=== PATIENT | male | born 1930 | race Caucasian/White ===

== ENCOUNTER 2016-05-11 07:01 | Inpatient (IN) | payer MEDICARE, BC ==
[~2016-05-11] VITALS: Ht 182.9 cm; Wt 68.9 kg
[~2016-05-11 07:01] MED LIST: ASPI81TA2 PO; CINA30TA PO; FOLI1TAB16 PO; HYDR-4077 PO; NIAC500T5 PO; OMEG500C3 PO; RANO500T3 PO; TAMS-12 PO; THYR30TA2 PO; VIT1TABL44 PO; ZOLP5TAB2 PO
[2016-05-11 07:39] LABS: BASOPHILS % (AUTO) 0.5 % (0.0-2.0); DIFF TOTAL % 100 %; EOSINOPHILS # (AUTO) 0.1 /CMM (0.0-0.7); EOSINOPHILS % (AUTO) 1.8 % (0.0-6.0); HEMATOCRIT 32 % (39-51); HEMOGLOBIN 10.4 g/dL (13.5-17.5); LYMPHOCYTES # (AUTO) 1.3 /CMM (0.8-4.8); LYMPHOCYTES % (AUTO) 26.9 % (20.0-44.0); MEAN CORPUSCULAR HEMOGLOBIN 37 PG (26.0-33.0); MEAN CORPUSCULAR HGB CONC 33 g/dl (31.0-36.0); MEAN CORPUSCULAR VOLUME 113 fL (80-96); MONOCYTES # (AUTO) 0.7 /CMM (0.1-1.30); MONOCYTES % (AUTO) 13.8 % (2.0-12.0); NEUTROPHILS # (AUTO) 2.8 /CMM (1.8-8.9); PLATELET COUNT (AUTO) 180 /CMM (150-450); RED BLOOD CELL COUNT(AUTO) 2.83 MIL/uL (4.5-6.0)
[2016-05-11 07:49] LABS: CALCIUM, SERUM 9.1 mg/dL (8.5-10.1); CREATININE 4.7 mg/dL (0.6-1.3); POTASSIUM 4.7 mmol/L (3.5-5.1)
[2016-05-11 08:03] LABS: INR 1.05 (0.87-1.13); PROTHROMBIN TIME 11.4 SECS (9.5-12.7)
[2016-05-11] MEDS ORDERED: ONDANSETRON HCL/PF 4 MG/2 ML VIAL ONE (08:45)
[2016-05-11] MEDS ORDERED: MORPHINE SULFATE INJ 4 MG/ML DISP.SYRIN ONE (08:45)
[2016-05-11 09:30] VITALS: BP 145/63
[2016-05-11] MEDS ORDERED: ONDANSETRON HCL/PF 4 MG/2 ML VIAL IVP ONE (09:30)
[2016-05-11] MEDS ORDERED: MORPHINE SULFATE INJ 2 MG/ML DISP.SYRIN IV ONE (09:30)
[2016-05-11] MEDS: hydrALAZINE HCL 50 MG TABLET PO SCH ×2 (09:30→17:00)
[2016-05-11] MEDS: THYROID 30 MG TABLET PO SCH (09:30)
[2016-05-11] MEDS: CINACALCET HCL 30 MG TABLET PO SCH (09:30)
[2016-05-11] MEDS: HEPARIN SODIUM, PORCINE 5000 UNITS/1 ML VIAL SQ SCH ×2 (10:30→21:00)
[2016-05-11] MEDS: VIT B CMPLX 3/FA/VIT C/BIOTIN 1 TAB TABLET PO SCH (11:28)
[2016-05-11] MEDS: FOLIC ACID 1 MG TABLET PO SCH (11:28)
[2016-05-11] MEDS: MORPHINE SULFATE INJ 2 MG/ML DISP.SYRIN IV PRN ×2 (11:30→21:08)
[2016-05-11 16:00] VITALS: BP 149/56
[2016-05-11] MEDS ORDERED: IV NS 0.9% 1,000 ML ONE (16:30)
[2016-05-11] MEDS: NIACIN EXT TAB (500MG) 500 MG TABLET.SA PO SCH (17:00)
[2016-05-11] MEDS ORDERED: IV NS 0.9% 1,000 ML IV PRN (17:00)
[2016-05-11] MEDS ORDERED: NIACIN 250 MG TABLET.SA PO SCH (17:00)
[2016-05-11 18:00] VITALS: BP 142/62
[2016-05-11 20:00] VITALS: BP 129/63
[2016-05-11 22:00] VITALS: BP 129/63
[2016-05-11] MEDS: ZOLPIDEM TARTRATE 5 MG TABLET PO SCH (22:37)
[2016-05-11] MEDS: TAMSULOSIN 0.4 MG CAP.SR.24H PO SCH (22:37)
[2016-05-12 06:54] LABS: BASOPHILS % (AUTO) 0.3 % (0.0-2.0); DIFF TOTAL % 100 %; EOSINOPHILS % (AUTO) 0.4 % (0.0-6.0); HEMATOCRIT 33 % (39-51); HEMOGLOBIN 10.9 g/dL (13.5-17.5); MEAN CORPUSCULAR HEMOGLOBIN 37 PG (26.0-33.0); MEAN CORPUSCULAR HGB CONC 33 g/dl (31.0-36.0); MEAN CORPUSCULAR VOLUME 112 fL (80-96); MONOCYTES # (AUTO) 1.3 /CMM (0.1-1.30); MONOCYTES % (AUTO) 19.4 % (2.0-12.0); NEUTROPHILS # (AUTO) 4.4 /CMM (1.8-8.9); NEUTROPHILS % (AUTO) 64.9 % (43.0-81.0); PLATELET COUNT (AUTO) 174 /CMM (150-450); RED BLOOD CELL COUNT(AUTO) 2.98 MIL/uL (4.5-6.0); WHITE BLOOD COUNT (AUTO) 6.8 K/uL (4.3-11.0)
[2016-05-12 07:07] LABS: ALBUMIN 3.2 g/dL (3.4-5.0); BILIRUBIN,TOTAL 0.7 mg/dL (0.2-1.0); CALCIUM, SERUM 8.5 mg/dL (8.5-10.1); CREATININE 3.8 mg/dL (0.6-1.3); PHOSPHORUS 3.5 mg/dL (2.5-4.9); TOTAL PROTEIN, SERUM 7.2 g/dL (6.4-8.2)
[2016-05-12 07:12] LABS: POTASSIUM 4.8 mmol/L (3.5-5.1)
[2016-05-12 08:00] VITALS: BP 130/56
[2016-05-12] MEDS: MORPHINE SULFATE INJ 2 MG/ML DISP.SYRIN IV PRN ×2 (09:37→21:24)
[2016-05-12] MEDS: CINACALCET HCL 30 MG TABLET PO SCH (09:37)
[2016-05-12] MEDS: VIT B CMPLX 3/FA/VIT C/BIOTIN 1 TAB TABLET PO SCH (09:37)
[2016-05-12] MEDS: THYROID 30 MG TABLET PO SCH (09:37)
[2016-05-12] MEDS: ASPIRIN 81 MG TAB.CHEW PO SCH (09:37)
[2016-05-12] MEDS: FOLIC ACID 1 MG TABLET PO SCH (09:38)
[2016-05-12] MEDS: hydrALAZINE HCL 50 MG TABLET PO SCH ×2 (09:39→17:00)
[2016-05-12] MEDS: NIACIN EXT TAB (500MG) 500 MG TABLET.SA PO SCH ×2 (09:40→18:30)
[2016-05-12 09:42] LABS: EOSINOPHILS % (MANUAL) 2 % (0-4); LYMPHOCYTES % (MANUAL) 14 % (16-48)
[2016-05-12 09:43] LABS: ANISOCYTOSIS 1+; PLATELET ESTIMATE ADEQUATE
[2016-05-12] MEDS ORDERED: SECONDARY IV SET 1 EA INFUS.SET MC ONE (11:56)
[2016-05-12] MEDS: Magnesium 1GM/D5W 100ML PREMIX 100 ML IV SCH ×2 (11:57→13:49)
[2016-05-12] MEDS ORDERED: IV NS 0.9% 250 ML IV ONE (11:59)
[2016-05-12 16:00] VITALS: BP_SYST 122; BP_SYST 147; BP_DIAS 51; BP_DIAS 65
[2016-05-12 20:00] VITALS: BP_SYST 131; BP_SYST 99; BP_DIAS 50; BP_DIAS 60
[2016-05-12] MEDS: TAMSULOSIN 0.4 MG CAP.SR.24H PO SCH (22:21)
[2016-05-12] MEDS: ZOLPIDEM TARTRATE 5 MG TABLET PO SCH (22:21)
[2016-05-13 08:00] VITALS: BP 136/61
[2016-05-13 08:40] LABS: BASOPHILS % (AUTO) 0.4 % (0.0-2.0); DIFF TOTAL % 100 %; EOSINOPHILS % (AUTO) 0.3 % (0.0-6.0); HEMATOCRIT 34 % (39-51); HEMOGLOBIN 11.2 g/dL (13.5-17.5); LYMPHOCYTES % (AUTO) 12.1 % (20.0-44.0); MEAN CORPUSCULAR HEMOGLOBIN 37 PG (26.0-33.0); MEAN CORPUSCULAR HGB CONC 33 g/dl (31.0-36.0); MEAN CORPUSCULAR VOLUME 112 fL (80-96); MONOCYTES # (AUTO) 1.4 /CMM (0.1-1.30); MONOCYTES % (AUTO) 16.9 % (2.0-12.0); NEUTROPHILS # (AUTO) 5.7 /CMM (1.8-8.9); NEUTROPHILS % (AUTO) 70.3 % (43.0-81.0); PLATELET COUNT (AUTO) 164 /CMM (150-450); RED BLOOD CELL COUNT(AUTO) 3.05 MIL/uL (4.5-6.0); WHITE BLOOD COUNT (AUTO) 8.1 K/uL (4.3-11.0)
[2016-05-13 08:44] LABS: CHOLESTEROL 148 mg/dL (<200); HDL CHOLESTEROL 39 mg/dL (40-60); LDL 89 mg/dL (0-99); TRIGLYCERIDES 95 mg/dL (30-150)
[2016-05-13 09:13] LABS: BAND % (MANUAL) 1 % (0.0-5.0); LYMPHOCYTES % (MANUAL) 11 % (16-48); PLATELET ESTIMATE ADEQUATE
[2016-05-13 09:14] LABS: ANISOCYTOSIS 1+
[2016-05-13 09:26] LABS: CALCIUM, SERUM 8.9 mg/dL (8.5-10.1); CREATININE 4.6 mg/dL (0.6-1.3); POTASSIUM 4.6 mmol/L (3.5-5.1)
[2016-05-13 09:30] LABS: PHOSPHORUS 3.9 mg/dL (2.5-4.9)
[2016-05-13] MEDS: ASPIRIN 81 MG TAB.CHEW PO SCH (09:54)
[2016-05-13] MEDS: FOLIC ACID 1 MG TABLET PO SCH (09:54)
[2016-05-13] MEDS: CINACALCET HCL 30 MG TABLET PO SCH (09:54)
[2016-05-13] MEDS: VIT B CMPLX 3/FA/VIT C/BIOTIN 1 TAB TABLET PO SCH (09:54)
[2016-05-13] MEDS: THYROID 30 MG TABLET PO SCH (09:54)
[2016-05-13] MEDS: hydrALAZINE HCL 50 MG TABLET PO SCH ×2 (09:55→18:19)
[2016-05-13] MEDS: NIACIN EXT TAB (500MG) 500 MG TABLET.SA PO SCH ×2 (09:56→18:19)
[2016-05-13 16:04] VITALS: BP_SYST 126; BP_SYST 136; BP_DIAS 61; BP_DIAS 67
[2016-05-13] MEDS: MORPHINE SULFATE INJ 2 MG/ML DISP.SYRIN IV PRN (18:23)
[2016-05-13 20:00] VITALS: BP 139/65
[2016-05-13] MEDS: TAMSULOSIN 0.4 MG CAP.SR.24H PO SCH (22:00)
[2016-05-13] MEDS: ZOLPIDEM TARTRATE 5 MG TABLET PO SCH (22:00)
[2016-05-14 08:00] VITALS: BP 133/62
[2016-05-14] MEDS: VIT B CMPLX 3/FA/VIT C/BIOTIN 1 TAB TABLET PO SCH (08:36)
[2016-05-14] MEDS: NIACIN EXT TAB (500MG) 500 MG TABLET.SA PO SCH ×2 (08:36→17:41)
[2016-05-14] MEDS: THYROID 30 MG TABLET PO SCH (08:36)
[2016-05-14] MEDS: ASPIRIN 81 MG TAB.CHEW PO SCH (08:36)
[2016-05-14] MEDS: CINACALCET HCL 30 MG TABLET PO SCH (08:37)
[2016-05-14] MEDS: hydrALAZINE HCL 50 MG TABLET PO SCH ×2 (08:37→17:00)
[2016-05-14] MEDS: FOLIC ACID 1 MG TABLET PO SCH (08:37)
[2016-05-14 16:00] VITALS: BP 124/56
[2016-05-14] MEDS ORDERED: ACETAMINOPHEN 325 MG TABLET PO PRN (18:00)
[2016-05-14 20:00] VITALS: BP 119/62
[2016-05-14] MEDS: ZOLPIDEM TARTRATE 5 MG TABLET PO SCH (21:37)
[2016-05-14] MEDS: TAMSULOSIN 0.4 MG CAP.SR.24H PO SCH (21:37)
[2016-05-15 08:00] VITALS: BP 129/55
[2016-05-15] MEDS: CINACALCET HCL 30 MG TABLET PO SCH (08:33)
[2016-05-15] MEDS: ASPIRIN 81 MG TAB.CHEW PO SCH (08:33)
[2016-05-15] MEDS: FOLIC ACID 1 MG TABLET PO SCH (08:33)
[2016-05-15] MEDS: VIT B CMPLX 3/FA/VIT C/BIOTIN 1 TAB TABLET PO SCH (08:33)
[2016-05-15] MEDS: hydrALAZINE HCL 50 MG TABLET PO SCH ×2 (08:33→16:12)
[2016-05-15] MEDS: THYROID 30 MG TABLET PO SCH (08:33)
[2016-05-15] MEDS: NIACIN EXT TAB (500MG) 500 MG TABLET.SA PO SCH ×2 (08:36→16:12)
[2016-05-15] MEDS: MORPHINE SULFATE INJ 2 MG/ML DISP.SYRIN IV PRN (10:05)
[2016-05-15] MEDS ORDERED: MAGNESIUM HYDROXIDE 30 ML UDC PO PRN (10:30)
[2016-05-15] MEDS: DOCUSATE SODIUM 100 MG CAPSULE PO SCH ×2 (11:33→16:12)
[2016-05-15 16:00] VITALS: BP 135/60
[2016-05-15 16:42] VITALS: BP 135/60
== END 2016-05-15 20:12 | DRG 535 ==
LOC: ER 07:03 → MED 09:27
PROVIDERS: ADMIT Internal Medicine Nephrology; ATTEND Internal Medicine Nephrology
PROC: 5A1D60Z (ICD-10-PCS; principal; 2016-05-11)
DX: S72.111A Displaced fracture of greater trochanter of right femur, initial encounter for closed fracture (principal); N18.6 End stage renal disease; I12.0 Hypertensive chronic kidney disease with stage 5 chronic kidney disease or end stage renal disease; W01.0XXA Fall on same level from slipping, tripping and stumbling without subsequent striking against object, initial encounter; Y92.009 Unspecified place in unspecified non-institutional (private) residence as the place of occurrence of the external cause; I25.10 Atherosclerotic heart disease of native coronary artery without angina pectoris; E11.22 Type 2 diabetes mellitus with diabetic chronic kidney disease; D64.9 Anemia, unspecified; Z99.2 Dependence on renal dialysis; Z95.1 Presence of aortocoronary bypass graft
CPT/HCPCS: 36415; 71010-TC; 73510-TC; 80048-TC; 80053-TC; 80061-TC; 83735-TC; 84100-TC; 85025-TC; 85730-TC; 87081-TC; 90935-TC; 93925-TC; 93930-TC; 93971-TC; 97001-TC; 97110-TC; 97116-TC; 97530-TC; A4606; J1644; J2270; J2405; J3475; J7030; J7050; Z7610

== ENCOUNTER 2016-08-08 11:30 | Outpatient (CLI) | payer MEDICARE, BC | END 2016-08-08 23:59 | disposition home or self-care (01) | LOC: RAD 11:30 | PROVIDERS: ATTEND Internal Medicine | DX: I50.9 Heart failure, unspecified (principal); Z95.0 Presence of cardiac pacemaker; Z95.828 Presence of other vascular implants and grafts; I51.7 Cardiomegaly; I70.0 Atherosclerosis of aorta | CPT/HCPCS: 71010-TC ==

== ENCOUNTER 2017-08-10 12:48 | Emergency (ER) | payer MEDICARE, BC ==
[~2017-08-10] VITALS: Ht 185.4 cm; Wt 64.4 kg
[~2017-08-10 12:48] MED LIST changes: +ASPI-1169 PO; -ASPI81TA2 PO; -CINA30TA PO; +CINA30TA2 PO
--- NOTE | 2017-08-10 13:06 | NUR ---
CALLED [facility], CAR DISTRIBUTOR WAS PAGED.
[2017-08-10 13:15] LABS: BASOPHILS # (AUTO) 0.1 /CMM (0.0-0.2); EOSINOPHILS % (AUTO) 2.7 % (0.0-6.0); HEMATOCRIT 23 % (39-51); HEMOGLOBIN 7.8 g/dL (13.5-17.5); LYMPHOCYTES # (AUTO) 0.7 /CMM (0.8-4.8); LYMPHOCYTES % (AUTO) 10.9 % (20.0-44.0); MEAN CORPUSCULAR HGB CONC 34 g/dl (31.0-36.0); MEAN CORPUSCULAR VOLUME 109 fL (80-96); MONOCYTES # (AUTO) 1.2 /CMM (0.1-1.30); MONOCYTES % (AUTO) 19.3 % (2.0-12.0); NEUTROPHILS # (AUTO) 4.1 /CMM (1.8-8.9); NEUTROPHILS % (AUTO) 66.1 % (43.0-81.0); PLATELET COUNT (AUTO) 274 /CMM (150-450); RDW COEFFICIENT OF VARIATION 15.1 (11.5-15.0); RED BLOOD CELL COUNT(AUTO) 2.13 MIL/uL (4.5-6.0); WHITE BLOOD COUNT (AUTO) 6.3 K/uL (4.3-11.0)
--- NOTE | 2017-08-10 13:20 | NUR ---
CALL BACK FROM DR BAR,ASKED DR GRECO TO GIVE 1 UNIT PRBC THEN SEND BACK TO [facility]
[2017-08-10 13:23] LABS: CALCIUM, SERUM 8.9 mg/dL (8.5-10.1); CARBON DIOXIDE 29 mmol/L (21-32); CHLORIDE 101 mmol/L (98-107); CREATININE 3.5 mg/dL (0.6-1.3); GLUCOSE 90 mg/dL (74-106); POTASSIUM 3.9 mmol/L (3.5-5.1); SODIUM SERUM 136 mmol/L (136-145); UREA NITROGEN, BLOOD 39 mg/dL (7-18)
[2017-08-10 16:09] VITALS: BP 141/70
== END 2017-08-10 16:23 | disposition home or self-care (01) ==
LOC: ER 12:49
DX: D64.9 Anemia, unspecified (principal); E11.22 Type 2 diabetes mellitus with diabetic chronic kidney disease; I12.0 Hypertensive chronic kidney disease with stage 5 chronic kidney disease or end stage renal disease; K40.90 Unilateral inguinal hernia, without obstruction or gangrene, not specified as recurrent; N18.6 End stage renal disease; Z79.82 Long term (current) use of aspirin; Z88.8 Allergy status to other drugs, medicaments and biological substances; Z95.1 Presence of aortocoronary bypass graft; Z99.2 Dependence on renal dialysis; Z98.890 Other specified postprocedural states
CPT/HCPCS: 36415; 80048-TC; 85025-TC; 86850-TC; 86921-TC; A4606; J7030; P9016-BL; Z7610

== ENCOUNTER 2017-11-13 16:38 | Inpatient (IN) | payer MEDICARE, BC ==
[~2017-11-13] VITALS: Ht 172.7 cm; Wt 58.5 kg
[~2017-11-13 16:38] MED LIST changes: -CINA30TA2 PO; -NIAC500T5 PO; -ZOLP5TAB2 PO
[2017-11-13 17:52] LABS: BASOPHILS # (AUTO) 0.1 /CMM (0.0-0.2); BASOPHILS % (AUTO) 0.8 % (0.0-2.0); EOSINOPHILS % (AUTO) 0.7 % (0.0-6.0); HEMATOCRIT 28 % (39-51); HEMOGLOBIN 9.2 g/dL (13.5-17.5); LYMPHOCYTES # (AUTO) 0.8 /CMM (0.8-4.8); LYMPHOCYTES % (AUTO) 10.7 % (20.0-44.0); MEAN CORPUSCULAR HEMOGLOBIN 36 PG (26.0-33.0); MEAN CORPUSCULAR HGB CONC 33 g/dl (31.0-36.0); MEAN CORPUSCULAR VOLUME 111 fL (80-96); MONOCYTES % (AUTO) 14.4 % (2.0-12.0); NEUTROPHILS # (AUTO) 5.2 /CMM (1.8-8.9); NEUTROPHILS % (AUTO) 73.4 % (43.0-81.0); PLATELET COUNT (AUTO) 293 /CMM (150-450); RDW COEFFICIENT OF VARIATION 18.5 (11.5-15.0); RED BLOOD CELL COUNT(AUTO) 2.54 MIL/uL (4.5-6.0); WHITE BLOOD COUNT (AUTO) 7.2 K/uL (4.3-11.0)
[2017-11-13 18:03] LABS: CALCIUM, SERUM 9.5 mg/dL (8.5-10.1); CARBON DIOXIDE 26 mmol/L (21-32); CHLORIDE 103 mmol/L (98-107); CREATININE 5.1 mg/dL (0.6-1.3); GLUCOSE 102 mg/dL (74-106); POTASSIUM 3.6 mmol/L (3.5-5.1); SODIUM SERUM 137 mmol/L (136-145); UREA NITROGEN, BLOOD 50 mg/dL (7-18)
[2017-11-13 18:07] LABS: INR 0.95 (0.85-1.15)
[2017-11-13 18:16] LABS: ALANINE AMINOTRANSFERASE 12 U/L (12-78); ALBUMIN 2.3 g/dL (3.4-5.0); ALKALINE PHOSPHATASE 72 U/L (46-116); ASPARTATE AMINOTRANSFERASE 12 U/L (15-37); B-TYPE NATRIURETIC PEPTIDE 12654 PG/ML (0-125); BILIRUBIN,DIRECT 0.1 mg/dL (0.0-0.2); BILIRUBIN,TOTAL 0.4 mg/dL (0.2-1.0); TOTAL PROTEIN, SERUM 6.7 g/dL (6.4-8.2)
[2017-11-13] MEDS ORDERED: CEFTRIAXONE 1GM BAG (ER ONLY) 1 GM/50 ML PIGGYBACK IV ONE (19:00)
--- NOTE | 2017-11-13 19:09 | NUR ---
CALLED NURSING FINE UNHAIRER AND REQUESTED A TELE BED FOR THIS PT.
--- NOTE | 2017-11-13 19:10 | NUR ---
CALLED THE OFFICE OF DR RUTLEDGE AND DR FORREST WAS PAGED.
--- NOTE | 2017-11-13 19:38 | NUR ---
PT IS ASSIGNED TO [facility]#: [id number], DX: CHF / FLUID OVERLOAD, ACCEPTING: DR FORREST.
[2017-11-13 20:00] VITALS: BP_SYST 143; BP_SYST 84; BP_DIAS 52; BP_DIAS 84
--- NOTE | 2017-11-13 20:03 | NUR ---
AMPOULE SEALER OPENING NOTES: RECEIVED PT FROM ED, WITH 2 FAMILY MEMBERS AT BEDSIDE. PT HAS IV ON L AC AND IS PATENT AND INTACT. CURRENTLY H/L. PT ON ROOM AIR AND TOLERATING WELL. PT HAS PD ACCESS IN ABDOMEN. NO SOB NOTED. NO S/S OF DISTRESS. CALL LIGHT WITHIN PT'S REACH. BED KEPT IN LOW, LOCKED POSITION, AND SIDE RAILS X 2UP. WILL CALL DR FOR ADMITTING ORDERS. WILL CONTINUE TO MONITOR PT.
[2017-11-13 20:07] VITALS: BP 143/84
[2017-11-13] MEDS ORDERED: CINA30TA2 PO (20:44)
--- NOTE | 2017-11-13 20:49 | NUR ---
RN NOTES: PAGED DR. FORREST'S OFFICE. AWAITING FOR ORDERS.
--- NOTE | 2017-11-13 21:30 | NUR ---
SASH MAKER NOTES: SPOKE WITH DR. FORREST. MD AWARE OF TROPONIN AND BNP. INFORMED HIM THAT FAMILY MEMBER AND PT IS CONCERNED SINCE HE GETS PERITONEAL DIALYSIS DAILY. PER DR. FORREST, HE PAGED DIALYSIS NURSE AND WILL NOTIFY NURSE. GOT ORDERS FOR AM LABS: CBC, CMP, MAG, PHOS, TSH, VIT B12, FOLIC ACID, TROPONIN X 2 Q6HRS FROM BEGINNING TIME. GOT PRN ORDERS FOR ZOFRAN 4MG IV Q6, AMBIEN 5MG PO QHS, TYLENOL 650MG Q6, O2 2L TO MAINTAIN O2 SAT > 90%, ALBUTEROL 2.GMG NEB Q6PRN. GOT OTHER MED ORDERS FOR HEPARIN 5,000 UNITS SQ Q12HR, ROCEPHIN 1GM 1V Q24HR, ACCUCHECKS ACHS WITH MILD SLIDING SCALE, BUMEX 4MG IV TO BE RAN OVER 4 HOURS. GOT ADMITTING ORDERS FOR DIAGNOSIS CHF, CONDITION: GUARDED, RENAL DIET, IV TO KEEP HEP/LOCK. READ MEDICATIONS ASPIRIN 81MG PO DAILY, SENSIPAR 30MG PO DAILY, FOLIC ACID 1MG PO DAILY, HYDRALAZINE HCL 50MG PO BID, FISH OIL 1,00MG PO DAILY, RANEXA 500MG PO BID, FLOMAX 0.4MG PO HS, THYROID PORK 30MG DAILY, AND NEPHRO-HALI 1 TAB PO DAILY AND OK TO CONTINUE MEDS THAT WERE READ TO MD. ALSO GOT ORDER FOR PT/OT EVAL.
[2017-11-13] MEDS ORDERED: ACETAMINOPHEN 325 MG TABLET PO PRN (22:00)
[2017-11-13] MEDS ORDERED: DEXTROSE 50%-WATER 50 ML DISP.SYRIN IV PRN (22:00)
[2017-11-13] MEDS ORDERED: ALBUTEROL FS 2.5 MG/0.5 ML VIAL.NEB NEB PRN (22:00)
[2017-11-13] MEDS ORDERED: BUMETANIDE INJ 4 MG in IV NS 0.9% 24 ML IV ONE (22:00)
[2017-11-13] MEDS ORDERED: ONDANSETRON HCL/PF 4 MG/2 ML VIAL IV PRN (22:00)
[2017-11-13] MEDS ORDERED: ZOLPIDEM TARTRATE 5 MG TABLET PO PRN (22:00)
--- NOTE | 2017-11-13 22:24 | NUR ---
BUILDING ASSOCIATE NOTES: PAGED. DR. FORREST IN REGARDS TO DIALYSIS SITUATION.
--- NOTE | 2017-11-13 22:46 | NUR ---
TAPE EDGE MACHINE OPERATOR NOTES: SPOKE WITH DR. FORREST IN REGARDS TO PERITONEAL DIALYSIS SITUATION. PER ADRIANE ARCHULETA, THERE WILL BE A DIALYSIS NURSE THAT WILL BE DOING A MANUAL EXCHANGE DIALYSIS VIA HIS ACCESS IN HIS PERITONEUM. NAME OF THE DIALYSIS NURSE IS SUAD AND HE IS GATHERING SUPPLIES AND SHOULD BE COMING TONIGHT. ALSO INFORMED HIM THAT FAMILY MEMBER WILL BRING MACHINE TOMORROW FOR PERITONEAL DIALYSIS. MD AWARE. ALSO GOT SCHEDULED ORDER FOR COLACE 250MG ONCE DAILY.
[2017-11-13] MEDS ORDERED: NS 0.9% IV ONE (23:00)
[2017-11-13] MEDS ORDERED: BUMETANIDE IV ONE (23:00)
[2017-11-13] MEDS: TAMSULOSIN 0.4 MG CAP.SR.24H PO SCH (23:09)
[2017-11-13] MEDS: BLOOD SUGAR DIAGNOSTIC 1 EACH STRIP IN SCH (23:09)
[2017-11-13] MEDS ORDERED: BUMETANIDE INJ 0.25 MG/ML VIAL ONE (23:10)
[2017-11-13] MEDS: HEPARIN SODIUM, PORCINE 5000 UNITS/1 ML VIAL SQ SCH (23:11)
[2017-11-14] VITALS: BP 111/55
--- NOTE | 2017-11-14 00:51 | NUR ---
MUSEUM TECHNICIAN NOTES: HYDRALAZINE HELD. BP 111/55 HR 65. PT ALSO ON BUMEX 4MG IV INFUSING WITH 29ML/HR. WILL CONTINUE TO MONITOR BP.
[2017-11-14 04:00] VITALS: BP 114/61
--- NOTE | 2017-11-14 06:19 | NUR ---
NORMALIZER OPENING NOTES: SPOKE WITH DR. FORREST TO SEE STATUS OF PERITONEAL DIALYSIS. DIALYSIS NURSE WAS UNABLE TO GET SUPPLIES BUT TODAY, THERE WILL BE A DIALYSIS NURSE TO SEE THE PATIENT ONCE SUPPLIED OBTAINED.
[2017-11-14 06:39] LABS: ALANINE AMINOTRANSFERASE 9 U/L (12-78); ALBUMIN 2.1 g/dL (3.4-5.0); ALKALINE PHOSPHATASE 63 U/L (46-116); ASPARTATE AMINOTRANSFERASE 14 U/L (15-37); BILIRUBIN,TOTAL 0.4 mg/dL (0.2-1.0); CALCIUM, SERUM 8.6 mg/dL (8.5-10.1); CARBON DIOXIDE 26 mmol/L (21-32); CHLORIDE 102 mmol/L (98-107); CREATININE 5.4 mg/dL (0.6-1.3); GLUCOSE 99 mg/dL (74-106); MAGNESIUM 1.6 mg/dL (1.8-2.4); POTASSIUM 3.4 mmol/L (3.5-5.1); SODIUM SERUM 137 mmol/L (136-145); TOTAL PROTEIN, SERUM 6.1 g/dL (6.4-8.2); UREA NITROGEN, BLOOD 52 mg/dL (7-18)
[2017-11-14 06:40] LABS: BASOPHILS # (AUTO) 0.1 /CMM (0.0-0.2); BASOPHILS % (AUTO) 0.9 % (0.0-2.0); EOSINOPHILS % (AUTO) 1.9 % (0.0-6.0); HEMATOCRIT 25 % (39-51); HEMOGLOBIN 8.4 g/dL (13.5-17.5); LYMPHOCYTES # (AUTO) 0.8 /CMM (0.8-4.8); LYMPHOCYTES % (AUTO) 14.3 % (20.0-44.0); MEAN CORPUSCULAR HEMOGLOBIN 38 PG (26.0-33.0); MEAN CORPUSCULAR HGB CONC 33 g/dl (31.0-36.0); MEAN CORPUSCULAR VOLUME 114 fL (80-96); MONOCYTES % (AUTO) 17.9 % (2.0-12.0); NEUTROPHILS # (AUTO) 3.6 /CMM (1.8-8.9); PLATELET COUNT (AUTO) 240 /CMM (150-450); RDW COEFFICIENT OF VARIATION 19.4 (11.5-15.0); RED BLOOD CELL COUNT(AUTO) 2.22 MIL/uL (4.5-6.0); WHITE BLOOD COUNT (AUTO) 5.5 K/uL (4.3-11.0)
[2017-11-14] MEDS: BLOOD SUGAR DIAGNOSTIC 1 EACH STRIP IN SCH ×4 (06:50→21:07)
[2017-11-14 07:14] LABS: THYROID STIMULATING HORMONE 3.553 uIU/mL (0.358-3.74)
--- NOTE | 2017-11-14 07:38 | NUR ---
ROAD TRAIN DRIVER CLOSING NOTES: ALL NEEDS WERE ATTENDED AND ANTICIPATED FOR. PT ON 2LPM VIA NC AND TOLERATING WELL. PT RESTING IN BED COMFORTABLY IN SEMI-CATALAN'S POSITION. PT HAS PD ACCESS AND IS INTACT. PT HAS IV AND IS CURRENTLY H/L. CALL LIGHT WITHIN PT'S REACH. PT ON TELE BOX AND READING SHOWS JUNCTIONAL/V PACING 60-70S. CALL LIGHT WITHIN PT'S REACH. BED KEPT IN LOW, LOCKED POSITION, AND SIDE RAILS X 2UP. ENDORSED TO AM NURSE FOR JULIO.
[2017-11-14 08:00] VITALS: BP 117/66
[2017-11-14] MEDS ORDERED: POTASSIUM CHLORIDE 20 MEQ TAB.PRT.SR PO SCH (08:00)
[2017-11-14] MEDS: VIT B CMPLX 3/FA/VIT C/BIOTIN 1 TAB TABLET PO SCH (08:39)
[2017-11-14] MEDS: FOLIC ACID 1 MG TABLET PO SCH (08:39)
[2017-11-14] MEDS: ASPIRIN 81 MG TAB.CHEW PO SCH (08:40)
[2017-11-14] MEDS: CINACALCET HCL 30 MG TABLET PO SCH (08:40)
[2017-11-14] MEDS: DOCUSATE SODIUM 250 MG CAPSULE PO SCH (08:40)
[2017-11-14] MEDS: THYROID 30 MG TABLET PO SCH (08:48)
[2017-11-14] MEDS: HEPARIN SODIUM, PORCINE 5000 UNITS/1 ML VIAL SQ SCH (08:57)
[2017-11-14] MEDS: hydrALAZINE HCL 50 MG TABLET PO SCH ×3 (08:58→17:07)
[2017-11-14] MEDS: Magnesium 1GM/D5W 100ML PREMIX 100 ML IV SCH ×2 (09:04→10:44)
--- NOTE | 2017-11-14 09:20 | NUR ---
m/s business liaison manager: p.t. eval up with p.t. using fww, lyndsey. well. pt back in bed. instructed to call for assistance. will continue to monitor.
[2017-11-14 10:15] LABS: EOSINOPHILS % (MANUAL) 3 % (0-4); LYMPHOCYTES % (MANUAL) 9 % (16-48); MONOCYTES % (MANUAL) 20 % (0-11.0); NEUTROPHILS % (MANUAL) 68 (42-76)
[2017-11-14] MEDS ORDERED: LIDOCAINE HCL/PF 1% 30 ML SDV ONE (10:20)
--- NOTE | 2017-11-14 10:20 | NUR ---
m/s asbestos removal supervisor: pulmo consult seen and examined by dr. soares with orders. orders acknowledged. consent obtained from pt re: us guided thoracentesis of right lung, pt verbalized understanding. edmundo (Contatta) aware and will clarify with radiologist if they can do it today, pt had heparin 5000 units sq this morning.
--- NOTE | 2017-11-14 10:25 | NUR ---
m/s horse wrangler: notes here and brought the pd supplies and tata (hd nurse) made aware. edmundo (Adeptence tech) called back and informed me that us guided thoracentesis will be done tomorrow due to pt had heparin dose this morning. cn, pt, and made aware.
[2017-11-14] MEDS: INSULIN REGULAR, HUMAN 100 UNIT/ML 3 ML VIAL SQ PRN (11:56)
[2017-11-14] MEDS ORDERED: Z GUARD REMEDY 4 OZ OINT TP PRN (12:00)
--- NOTE | 2017-11-14 13:45 | NUR ---
m/s osteopathic neurologist: notes moved pt to room 324 bed 1 due to pd tx today per hd nurse request. made aware. simone (hd nurse) to come back to connect his pd tx today. pt aware.
--- NOTE | 2017-11-14 15:10 | NUR ---
m/s blocker and cutter contact lens: md visit seen and examined by dr. nelson and informed md re: us guided thoracentesis to be done tomorrow due to heparin given earlier this morning prior to dr. soares ordering the procedure with verbal order to discontinue heparin. verbal order read back. order carried out and acknowledged. at bedside and spoke to md and updated plan of care.
[2017-11-14 16:00] VITALS: BP_SYST 138; BP_SYST 63; BP_DIAS 20; BP_DIAS 65
[2017-11-14] MEDS ORDERED: DOCU100C36 PO (16:23)
--- NOTE | 2017-11-14 18:10 | NUR ---
m/s employment supervisor: notes peritoneal dialysis started by maxine (hd nurse) at this time. pt finishing up his dinner. needs attended. per tata goodman to come in the morning to disconnect him. pt needs to stay for 8 hours per maxine. instructed to call for assistance. will continue to monitor.
[2017-11-14 20:00] VITALS: BP 151/75
[2017-11-14] MEDS ORDERED: CEFTRIAXONE 1 G in IV NS 0.9% 50 ML IV SCH ×2 (20:00→21:00)
--- NOTE | 2017-11-14 20:01 | NUR ---
RN MS OPENING NOTES RECEIVED PATIENT IN BED AWAKE. ALERT AND ORIENTED X4. IN STABLE CONDITION. BREATHING EVEN AND UNLABORED. NO SOB NOTED. NO COMPLAINTS OF PAIN OR DISCOMFORT. IV ON LEFT AC#18 INTACT AND PATENT. PATIENT CURRENTLY RECEIVING PERITONEAL DIALYSIS. ALL OTHER NEEDS ATTENDED TO. AT BEDSIDE. CALL LIGHT WITHIN REACH. BED ON LOWEST LOCKED POSITION. WILL CONTINUE TO MONITOR.
[2017-11-14] MEDS: CEFTRIAXONE 1 G in IV D5W 50 ML IV SCH (20:18)
[2017-11-14] MEDS: Z GUARD REMEDY 4 OZ OINT TP SCH (20:19)
--- NOTE | 2017-11-14 21:09 | NUR ---
RN MS NOTES PATIENT REFUSED BLOOD SUGAR CHECK DESPITE EXPLANATION OF RISKS AND BENEFITS. PER PATIENT, HE DOESN'T NEED HIS BLOOD SUGAR CHECKED.
[2017-11-14] MEDS: TAMSULOSIN 0.4 MG CAP.SR.24H PO SCH (21:11)
--- NOTE | 2017-11-15 06:59 | NUR ---
RN MS NOTES PATIENT REFUSED BLOOD SUGAR CHECK AGAIN DESPITE EXPLANATION OF RISKS AND BENEFITS.
--- NOTE | 2017-11-15 07:01 | NUR ---
RN MS CLOSING NOTES PATIENT RESTING IN BED. A/OX4. IN STABLE CONDITION. BREATHING EVEN AND UNLABORED. NO SOB NOTED. TOLERATING ROOM AIR. NO COMPLAINTS OF PAIN OR DISCOMFORT. IV ON LEFT AC#18 INTACT AND PATENT. PD ACCESS INTACT AND PATENT. S/P 8 HOURS OF PD LAST NIGHT. TOLERATED WELL. KEPT CLEAN DRY AND COMFORTABLE. ALL OTHER NEEDS ATTENDED TO. CALL LIGHT WITHIN REACH. BED ON LOWEST LOCKED POSITION. WILL ENDORSE TO ONCOMING NURSE FOR CONTINUITY OF CARE.
[2017-11-15] MEDS: BLOOD SUGAR DIAGNOSTIC 1 EACH STRIP IN SCH ×4 (07:03→21:18)
--- NOTE | 2017-11-15 07:30 | NUR ---
ms rn received on bed, awake,alert,oriented x4,not in any form of distress,respirations even and unlabored,no sob noted, lungs are clear,abdomen soft,positive bowel sounds,still w/ peritoneal dialysis connected,will hd rn come today to disconnect patient,denies pain at this time,all needs attended.
[2017-11-15 08:00] VITALS: BP 138/53
[2017-11-15] MEDS: hydrALAZINE HCL 50 MG TABLET PO SCH ×2 (09:00→16:57)
[2017-11-15] MEDS: FOLIC ACID 1 MG TABLET PO SCH (09:54)
[2017-11-15] MEDS: ASPIRIN 81 MG TAB.CHEW PO SCH (09:54)
[2017-11-15] MEDS: DOCUSATE SODIUM 250 MG CAPSULE PO SCH (09:54)
[2017-11-15] MEDS: CINACALCET HCL 30 MG TABLET PO SCH (09:55)
[2017-11-15] MEDS: VIT B CMPLX 3/FA/VIT C/BIOTIN 1 TAB TABLET PO SCH (09:55)
[2017-11-15] MEDS: THYROID 30 MG TABLET PO SCH (09:56)
[2017-11-15] MEDS: Z GUARD REMEDY 4 OZ OINT TP SCH ×2 (09:59→20:24)
--- NOTE | 2017-11-15 10:00 | NUR ---
ms rn s/p thoracenthesis, tolerated well, no distress noted, fluid sent to pathology.
[2017-11-15 10:41] LABS: BASOPHILS % (AUTO) 0.1 % (0.0-2.0); EOSINOPHILS % (AUTO) 0.1 % (0.0-6.0); HEMATOCRIT 28 % (39-51); LYMPHOCYTES # (AUTO) 0.6 /CMM (0.8-4.8); LYMPHOCYTES % (AUTO) 11.1 % (20.0-44.0); MEAN CORPUSCULAR HEMOGLOBIN 37 PG (26.0-33.0); MEAN CORPUSCULAR HGB CONC 32 g/dl (31.0-36.0); MEAN CORPUSCULAR VOLUME 114 fL (80-96); MONOCYTES # (AUTO) 0.8 /CMM (0.1-1.30); MONOCYTES % (AUTO) 13.9 % (2.0-12.0); NEUTROPHILS # (AUTO) 4.1 /CMM (1.8-8.9); NEUTROPHILS % (AUTO) 74.8 % (43.0-81.0); PLATELET COUNT (AUTO) 273 /CMM (150-450); RDW COEFFICIENT OF VARIATION 18.5 (11.5-15.0); RED BLOOD CELL COUNT(AUTO) 2.45 MIL/uL (4.5-6.0); WHITE BLOOD COUNT (AUTO) 5.5 K/uL (4.3-11.0)
--- NOTE | 2017-11-15 10:53 | NUR ---
WOUND CARE CONSULT: PT PRESENTS WITH VERY BONY SACRAL AREA AND SKIN IRRITATION TO PERIANAL AREA AND LOWER BUTTOCKS, PRESENT ON ADMISSION. RECOMMENDATIONS MADE FOR SKIN PROTECTION AND CARE. DISCUSSED WITH NURSING STAFF. PERITONEAL DIALYSIS CATH NOTED TO ABDOMEN. CURRENT [place] SCORE IS 17. WILL SEE PRN. LEDEZMA IN AGREEMENT WITH PLAN OF CARE. Addendum: 11/15/17 at 1055 by SAUMYA HURST WNDNU Amended: Links added.
[2017-11-15 10:54] LABS: CALCIUM, SERUM 8.6 mg/dL (8.5-10.1); CARBON DIOXIDE 27 mmol/L (21-32); CHLORIDE 100 mmol/L (98-107); CREATININE 5.1 mg/dL (0.6-1.3); GLUCOSE 139 mg/dL (74-106); MAGNESIUM 2.1 mg/dL (1.8-2.4); PHOSPHORUS 3.2 mg/dL (2.5-4.9); POTASSIUM 3.6 mmol/L (3.5-5.1); SODIUM SERUM 136 mmol/L (136-145); UREA NITROGEN, BLOOD 47 mg/dL (7-18)
[2017-11-15] MEDS ORDERED: EPOETIN ALFA (20,000 UNIT) 20,000 UNIT/ML VIAL SQ ONE (11:00)
[2017-11-15 16:00] VITALS: BP 146/83
[2017-11-15] MEDS: INSULIN REGULAR, HUMAN 100 UNIT/ML 3 ML VIAL SQ PRN (17:03)
--- NOTE | 2017-11-15 18:00 | NUR ---
ms rn on bed, no distress noted,all needs attended.
--- NOTE | 2017-11-15 19:30 | NUR ---
RN MS OPENING NOTES RECEIVED PATIENT IN BED AWAKE. ALERT AND ORIENTED X4. IN STABLE CONDITION. BREATHING EVEN AND UNLABORED. NO SOB NOTED. NO COMPLAINTS OF PAIN OR DISCOMFORT. IV ON LEFT AC#18 INTACT AND PATENT. ALL OTHER NEEDS ATTENDED TO. FAMILY AT BEDSIDE. CALL LIGHT WITHIN REACH. BED ON LOWEST LOCKED POSITION. WILL CONTINUE TO MONITOR.
[2017-11-15 20:00] VITALS: BP 139/64
[2017-11-15] MEDS: CEFTRIAXONE 1 G in IV D5W 50 ML IV SCH (20:14)
--- NOTE | 2017-11-15 21:18 | NUR ---
RN MS NOTES PATIENT REFUSED BLOOD SUGAR CHECK THIS EVENING, STATING THAT HE DOESN'T NEED IT TO BE CHECK. ASKED MULTIPLE TIMES WELL EXPLAIN THE RISKS AND BENEFITS - PATIENT STILL REFUSED. PER PATIENT, HE WOULD LIKE IT CHECKED IN THE MORNING.
[2017-11-15] MEDS: TAMSULOSIN 0.4 MG CAP.SR.24H PO SCH (21:24)
--- NOTE | 2017-11-16 06:36 | NUR ---
RN MS CLOSING NOTES PATIENT RESTING IN BED. A/OX4. IN STABLE CONDITION. BREATHING EVEN AND UNLABORED. NO SOB NOTED. TOLERATING ROOM AIR. NO COMPLAINTS OF PAIN OR DISCOMFORT. IV ON LEFT AC#18 INTACT AND PATENT. PD ACCESS INTACT AND PATENT. KEPT CLEAN DRY AND COMFORTABLE. ALL OTHER NEEDS ATTENDED TO. CALL LIGHT WITHIN REACH. BED ON LOWEST LOCKED POSITION. WILL ENDORSE TO ONCOMING NURSE FOR CONTINUITY OF CARE.
[2017-11-16 06:58] LABS: BASOPHILS % (AUTO) 0.8 % (0.0-2.0); EOSINOPHILS % (AUTO) 1.7 % (0.0-6.0); HEMATOCRIT 28 % (39-51); LYMPHOCYTES # (AUTO) 0.8 /CMM (0.8-4.8); LYMPHOCYTES % (AUTO) 13.9 % (20.0-44.0); MEAN CORPUSCULAR HEMOGLOBIN 37 PG (26.0-33.0); MEAN CORPUSCULAR HGB CONC 33 g/dl (31.0-36.0); MEAN CORPUSCULAR VOLUME 114 fL (80-96); MONOCYTES # (AUTO) 0.7 /CMM (0.1-1.30); MONOCYTES % (AUTO) 12.7 % (2.0-12.0); NEUTROPHILS % (AUTO) 70.9 % (43.0-81.0); PLATELET COUNT (AUTO) 258 /CMM (150-450); RDW COEFFICIENT OF VARIATION 18.4 (11.5-15.0); RED BLOOD CELL COUNT(AUTO) 2.42 MIL/uL (4.5-6.0); WHITE BLOOD COUNT (AUTO) 5.7 K/uL (4.3-11.0)
[2017-11-16] MEDS: BLOOD SUGAR DIAGNOSTIC 1 EACH STRIP IN SCH ×4 (07:07→21:37)
[2017-11-16 07:24] LABS: CALCIUM, SERUM 8.2 mg/dL (8.5-10.1); CARBON DIOXIDE 25 mmol/L (21-32); CHLORIDE 102 mmol/L (98-107); CREATININE 5.2 mg/dL (0.6-1.3); GLUCOSE 111 mg/dL (74-106); PHOSPHORUS 3.8 mg/dL (2.5-4.9); POTASSIUM 3.5 mmol/L (3.5-5.1); SODIUM SERUM 137 mmol/L (136-145); UREA NITROGEN, BLOOD 47 mg/dL (7-18)
--- NOTE | 2017-11-16 07:32 | NUR ---
MS/RN Patient received Patient received from night shift supervisor. Sleeping soundly at this time, appears in no distress. Safety measures in place. Will continue to monitor and ensure safety.
[2017-11-16 08:00] VITALS: BP 164/75
[2017-11-16] MEDS: ASPIRIN 81 MG TAB.CHEW PO SCH (08:01)
[2017-11-16] MEDS: FOLIC ACID 1 MG TABLET PO SCH (08:01)
[2017-11-16] MEDS: VIT B CMPLX 3/FA/VIT C/BIOTIN 1 TAB TABLET PO SCH (08:01)
[2017-11-16] MEDS: DOCUSATE SODIUM 250 MG CAPSULE PO SCH (08:01)
[2017-11-16] MEDS: hydrALAZINE HCL 50 MG TABLET PO SCH ×2 (08:02→16:59)
[2017-11-16] MEDS: THYROID 30 MG TABLET PO SCH (08:02)
[2017-11-16] MEDS: CINACALCET HCL 30 MG TABLET PO SCH (08:02)
[2017-11-16] MEDS: Z GUARD REMEDY 4 OZ OINT TP SCH ×2 (08:03→20:35)
[2017-11-16 08:09] LABS: IRON, SERUM 59 ug/dl (50-175); TOTAL IRON BINDING CAPACITY 151 ug/dl (250-450)
--- NOTE | 2017-11-16 08:09 | NUR ---
MS/RN Medications Morning medication administered, un able to scan Grant mccloud from pharmacy made aware, will send new label.
--- NOTE | 2017-11-16 08:35 | NUR ---
MS/avionics engineer CAPD exchange at bedside.
[2017-11-16 09:09] LABS: EOSINOPHILS % (MANUAL) 1 % (0-4); LYMPHOCYTES % (MANUAL) 11 % (16-48); MONOCYTES % (MANUAL) 14 % (0-11.0); NEUTROPHILS % (MANUAL) 74 (42-76)
[2017-11-16 11:54] LABS: TOTAL PROTEIN, SERUM 6.5 g/dL (6.4-8.2)
--- NOTE | 2017-11-16 12:00 | NUR ---
MS/RN Blood sugars Refused for blood sugar alan be taken at noon, per patient he only tests blood sugar once a aday at most.
[2017-11-16] MEDS ORDERED: POLYETHYLENE GLYCOL 3350 17 GM POWD.PACK PO PRN (12:30)
--- NOTE | 2017-11-16 13:30 | NUR ---
MS/RN S/B Dr Mendoza Seen by Dr Mendoza - labs ordered for tomorrow.
[2017-11-16 14:54] LABS: URINE SODIUM, RANDOM 68 mmol/l (40-220)
[2017-11-16] MEDS ORDERED: EPOETIN ALFA (10,000 UNIT) 10,000 UNIT/ML VIAL IV SCH (15:00)
--- NOTE | 2017-11-16 15:00 | NUR ---
MS/RN Epogen Epogen 10,000 units administered as ordered Hb - 9
[2017-11-16 15:04] LABS: OSMOLALITY,URINE 342 mOS/kg (340-1090)
[2017-11-16 16:00] VITALS: BP 121/68
--- NOTE | 2017-11-16 16:00 | NUR ---
MS/falsework builder Peritoneal dialysis completed, patient remained stable throughout treatment.
[2017-11-16 16:17] VITALS: BP 121/68
--- NOTE | 2017-11-16 18:17 | NUR ---
MS/RN End note Patient remains in stable condition at this time, no further shortness of breath throughout the day. Time allowed for all questions and concerns to be addressed. Will endorse to welder 2nd shift.
[2017-11-16 20:00] VITALS: BP 125/66
[2017-11-16] MEDS: CEFTRIAXONE 1 G in IV D5W 50 ML IV SCH (20:22)
[2017-11-16] MEDS: TAMSULOSIN 0.4 MG CAP.SR.24H PO SCH (21:37)
[2017-11-16] MEDS: INSULIN REGULAR, HUMAN 100 UNIT/ML 3 ML VIAL SQ PRN (21:41)
[2017-11-17] MEDS: BLOOD SUGAR DIAGNOSTIC 1 EACH STRIP IN SCH ×2 (06:23→11:42)
--- NOTE | 2017-11-17 06:54 | NUR ---
MS RN NOTES AWAKE & RESPONSIVE. NOT IN ANY DISTRESS. NO SOB NOTED. DENIES ANY PAIN OR DISCOMFORT AT THIS TIME. WITH IV-HL PATENT & INTACT. MONITORED ACCORDINGLY. CALL LIGHT WITHIN REACH. BED IN LOWEST POSITION. SR UP X 3 WITH BED ALARM ON FOR SAFETY. WILL ENDORSE TO NEXT SHIFT.
[2017-11-17 07:05] LABS: BASOPHILS % (AUTO) 0.3 % (0.0-2.0); EOSINOPHILS % (AUTO) 1.9 % (0.0-6.0); HEMATOCRIT 29 % (39-51); HEMOGLOBIN 9.4 g/dL (13.5-17.5); LYMPHOCYTES # (AUTO) 0.9 /CMM (0.8-4.8); LYMPHOCYTES % (AUTO) 14.5 % (20.0-44.0); MEAN CORPUSCULAR HEMOGLOBIN 37 PG (26.0-33.0); MEAN CORPUSCULAR HGB CONC 32 g/dl (31.0-36.0); MEAN CORPUSCULAR VOLUME 115 fL (80-96); MONOCYTES # (AUTO) 0.8 /CMM (0.1-1.30); MONOCYTES % (AUTO) 13.8 % (2.0-12.0); NEUTROPHILS # (AUTO) 4.2 /CMM (1.8-8.9); NEUTROPHILS % (AUTO) 69.5 % (43.0-81.0); PLATELET COUNT (AUTO) 277 /CMM (150-450); RDW COEFFICIENT OF VARIATION 18.6 (11.5-15.0); RED BLOOD CELL COUNT(AUTO) 2.51 MIL/uL (4.5-6.0); WHITE BLOOD COUNT (AUTO) 6.1 K/uL (4.3-11.0)
[2017-11-17 07:29] LABS: ALANINE AMINOTRANSFERASE 7 U/L (12-78); ALBUMIN 2.1 g/dL (3.4-5.0); ALKALINE PHOSPHATASE 69 U/L (46-116); ASPARTATE AMINOTRANSFERASE 13 U/L (15-37); BILIRUBIN,TOTAL 0.4 mg/dL (0.2-1.0); CARBON DIOXIDE 25 mmol/L (21-32); CHLORIDE 102 mmol/L (98-107); CREATININE 5.3 mg/dL (0.6-1.3); GLUCOSE 105 mg/dL (74-106); MAGNESIUM 1.9 mg/dL (1.8-2.4); POTASSIUM 3.6 mmol/L (3.5-5.1); SODIUM SERUM 137 mmol/L (136-145); TOTAL PROTEIN, SERUM 6.4 g/dL (6.4-8.2); UREA NITROGEN, BLOOD 53 mg/dL (7-18)
--- NOTE | 2017-11-17 07:54 | NUR ---
RN OPENING NOTES RECEIVED PT. PT IS STABLE AND SLEEPING IN BED. NO S/S OF RESP DISTRESS OR SOB. PT DOES NOT APPEAR TO BE IN PAIN AT THIS TIME. IV ACCESS LOCATED ON LAC 18G CURRENTLY HL. PT AWAITING XR ESOPHAGRAM IN AM, WILL F/U WITH RADIOLOGY. SAFETY MEASURES IN PLACE, CALL LIGHT WITHIN REACH. WILL CONTINUE TO MONITOR.
[2017-11-17 08:00] VITALS: BP 119/67
[2017-11-17] MEDS: THYROID 30 MG TABLET PO SCH (08:16)
[2017-11-17] MEDS: FOLIC ACID 1 MG TABLET PO SCH (08:17)
[2017-11-17] MEDS: VIT B CMPLX 3/FA/VIT C/BIOTIN 1 TAB TABLET PO SCH (08:17)
[2017-11-17] MEDS: ASPIRIN 81 MG TAB.CHEW PO SCH (08:17)
[2017-11-17] MEDS: CINACALCET HCL 30 MG TABLET PO SCH (08:17)
[2017-11-17] MEDS: DOCUSATE SODIUM 250 MG CAPSULE PO SCH (08:17)
[2017-11-17] MEDS: hydrALAZINE HCL 50 MG TABLET PO SCH (08:28)
[2017-11-17] MEDS: Z GUARD REMEDY 4 OZ OINT TP SCH (08:28)
[2017-11-17 09:00] VITALS: BP 119/67
--- NOTE | 2017-11-17 09:25 | NUR ---
RN NOTES PT RECEIVING PERITONEAL DIALYSIS BEDSIDE, NURSING PROGRAM COORDINATOR PRESENT. WILL CONTINUE TO MONITOR.
--- NOTE | 2017-11-17 11:58 | NUR ---
RN NOTES PT REFUSED BLOOD SUGAR CHECK. NO S/S OF HYPER/HYPOGLYCEMIA. WILL CONTINUE TO MONITOR.
--- NOTE | 2017-11-17 15:30 | NUR ---
DISCHARGE NOTE PT DISCHARGED HOME WITH [facility]. STABLE, VSS, NO S/S OF RESP DISTRESS OR SOB. NO C/O PAIN AT THIS TIME. PT REFUSED SACRAL PICTURES UPON DISCHARGE. EXITCARE PROVIDED AND DISCHARGE TEACHING PERFORMED, PT VERBALIZES UNDERSTANDING. IV ACCESS AND ID BAND REMOVED. PT LEFT HOSPITAL IN PRIVATE VEHICLE WITH .
== END 2017-11-17 15:49 | disposition home health service (06) | DRG 280 ==
LOC: ER 16:39 → TELE 19:40 → MED 11-14 08:54
PROVIDERS: ADMIT Internal Medicine; ATTEND Internal Medicine
PROC: 3E1M39Z Irrigation of Peritoneal Cavity using Dialysate, Percutaneous Approach (ICD-10-PCS; 2017-11-14)
PROC: 0W993ZZ Drainage of Right Pleural Cavity, Percutaneous Approach (ICD-10-PCS; principal; 2017-11-15)
DX: I13.2 Hypertensive heart and chronic kidney disease with heart failure and with stage 5 chronic kidney disease, or end stage renal disease (principal); N18.6 End stage renal disease; I21.4 Non-ST elevation (NSTEMI) myocardial infarction; I50.33 Acute on chronic diastolic (congestive) heart failure; J98.11 Atelectasis; J90 Pleural effusion, not elsewhere classified; R64 Cachexia; Z68.1 Body mass index [BMI] 19.9 or less, adult; E11.22 Type 2 diabetes mellitus with diabetic chronic kidney disease; I25.10 Atherosclerotic heart disease of native coronary artery without angina pectoris; Z95.1 Presence of aortocoronary bypass graft; Z99.2 Dependence on renal dialysis; D64.9 Anemia, unspecified; E03.9 Hypothyroidism, unspecified; Z87.891 Personal history of nicotine dependence
CPT/HCPCS: 36415; 71045-TC; 71250-TC; 76942-TC; 80048-TC; 80053-TC; 80076-TC; 82746; 82962-TC; 83540-TC; 83615-TC; 83735-TC; 83880; 83935-TC; 84100-TC; 84155-TC; 84300-TC; 84443-TC; 84484-TC; 85025-TC; 85730-TC; 87070-TC; 87075-TC; 87081-TC; 87102-TC; 89051-TC; 90935-TC; 93307-TC; 97110-TC; 97112-TC; 97116-TC; 97530-TC; A4216; A4606; A6410; J0696; J0885; J1644; J1815; J3475; J3490; J7030; J7050; J7060; Z7610